=== PATIENT | female | born 1975 | race Two or more races ===

== ENCOUNTER 2020-08-28 02:00 | Emergency (ER) | payer SELFPAY ==
[~2020-08-28] VITALS: Ht 129.5 cm; Wt 66.0 kg
[2020-08-28 02:36] LABS: BILIRUBIN,URINE NEGATIVE (NEG); CLARITY,URINE CLEAR; COLOR,URINE YELLOW; NITRITE,URINE NEGATIVE (NEG); PH,URINE 5.5 (<5.0-8.0); PROTEIN,URINE NEGATIVE (NEG-TRACE); UROBILINOGEN,URINE 0.2 mg/dL (0.2 mg/dL)
--- NOTE | 2020-08-28 02:36 | PHYS DOC ---
General Adult EDM: Chief Complaint: ABDOMINAL PAIN HPI: HPI: Patient is a 45 year old female who presents with abdominal pain that began 2 days ago. Patient notes that her pain is intermittent and she has used ibuprofen without relief. Patient also notes that her pain radiates to her back. She also complains of nausea, diarrhea, but denies vomiting, hematochezia she is not take any medication does not have any significant medical problems. She does not use tobacco products, drink alcohol, or use any other illicit drugs. There are no further complaints this time. Review of Systems: Review of Systems: Constitutional: Denies fever or chills Eyes: Denies redness or eye pain HENT: Denies nasal congestion or sore throat Respiratory: Denies cough or shortness of breath Cardiovascular: Denies chest pain or palpitations GI: Denies vomiting : Denies dysuria or hematuria Musculoskeletal: Denies back pain or joint pain Integument: Denies rash or skin lesions Neurologic: Denies headache, focal weakness or sensory changes Complete systems were reviewed and found to be within normal limits, except as documented in this note. Current Medications: Current Medications Medications (Trade) Dose Ordered Sig/Tamica Start Time Stop Time Status Last Admin Dose Admin Famotidine (Pepcid Vial) 20 mg 1X ONCE 08/28/20 02:30 08/28/20 02:31 UNV Ondansetron HCl (Zofran) 4 mg 1X ONCE 08/28/20 02:30 08/28/20 02:31 UNV Sodium Chloride 1,000 ml @ 1,000 mls/hr 1X ONCE 08/28/20 02:30 08/28/20 03:29 UNV Physical Exam: PE: Constitutional: Well developed, well nourished, no acute distress, non-toxic appearance HENT: Normocephalic, atraumatic Eyes: PERRL, EOMI, conjunctiva normal, no discharge Neck: Normal range of motion, no tenderness, supple Lungs & Thorax: No respiratory distress, equal chest rise and fall Abdomen: Epigastric and suprapubic tenderness to palpation, mild diffuse abdominal tenderness, no rebound, no rigidity, no guarding, no mass, Xavier sign negative Skin: Warm, dry, no erythema, no rash Back: No tenderness, no CVA tenderness Extremities: No tenderness, ROM intact, no edema Neurologic: Alert and oriented X 3, normal motor function, normal sensory function, no focal deficits noted Psychologic: Affect normal, judgment normal EKG: EK. Normal sinus rhythm rate of 56 bpm. Normal axis. No ST segment elevations or depressions. QTQTc 404 ms - 392 ms. Radiology/Procedures: Radiology/Procedures: PROCEDURE: CT ABD PELV W/ IV CONTRST ONLY Study: CT abdomen/pelvis with intravenous contrast Indication: Upper abdominal pain. Nausea and vomiting. Comparison: None. Technique: Helical CT imaging performed of the abdomen and pelvis after the intravenous administration of 75 cc Omnipaque 300 contrast. Sagittal and coronal reformats were obtained. One or more of the following individualized dose reduction techniques were utilized for this examination: 1. Automated exposure control 2. Adjustment of the mA and/or kV according to patient size 3. Use of iterative reconstruction technique. Findings: Within normal limits visualized lungs and mediastinal contents. Minimal basilar volume loss. Unremarkable liver, gallbladder, pancreas, spleen and adrenal glands. Symmetric renal enhancement. No stone or collecting system dilatation. Mildly thickened urinary bladder wall measuring up to 5 mm. Punctate focus of gas at the anterior aspect of the urinary bladder, image 38 series 5. Within normal limits uterus and endometrium for patient age. Left ovarian cyst measuring up to 2.2 cm. Unremarkable right adnexa. Mild volume colonic stool burden. The appendix is not well delineated. Fecalization of enteric material suggesting slowed transit. Within normal limits stomach. Nonaneurysmal aorta. Patent central portal veins and superior mesenteric vein. No concerning lymph nodes by size criteria. Small volume free fluid within the deep pelvis. No pneumoperitoneum. No acute abnormality of the body wall soft tissues. No acute or aggressive osseous process. Chronic unilateral pars defect on the left at L5. Impression: 1. Upper limits of normal urinary bladder wall thickness. There is also a punctate focus of gas within the bladder lumen. Cystitis should be considered for which correlation with urinalysis is recommended. No findings to suggest an ascending urinary tract infection. 2. Mild degree of constipation. No bowel obstruction. 3. Within normal limits gallbladder. The appendix is not well visualized but there are no inflammatory changes at its expected location. 4. Small ovarian cyst on the left and trace free fluid within the pelvis not atypical for patient age. Electronically signed by: DENISE OVALLE MD (08/28/2020 5:35 AM) [facility] Course & Med Decision Making: Course & Med Decision Making Pertinent Labs and Imaging studies reviewed. (See chart for details) [] Shirley Disclaimer: Dragon Disclaimer: This electronic medical record was generated, in whole or in part, using a voice recognition dictation system. Departure Departure Impression: Primary Impression: Epigastric abdominal pain Additional Impression: Nausea & vomiting Qualified Codes: R11.2 - Nausea with vomiting, unspecified Disposition: 01 DC HOME SELF CARE/HOMELESS Condition: STABLE Referrals: CANDIS BOSTON MD Patient Instructions: Abdominal Pain, [id number], Nausea and Vomiting, [id number] Scripts Hyoscyamine Sulfate (LEVSIN-SL) 0.125 Mg Tab.subl 0.125 MG SL Q4-6HRS PRN for PAIN, #14 TAB Prov: VONNIE BENITEZ DO 08/28/20 Famotidine (PEPCID) 20 Mg Tablet 20 MG PO BID, #14 TAB Prov: VONNIE BENITEZ DO 08/28/20 Ondansetron (ONDANSETRON ODT) 4 Mg Tab.rapdis 1 TAB PO PRN Q6-8HRS PRN for NAUSEA, #16 TAB Prov: VONNIE BENITEZ DO 08/28/20 VONNIE BENITEZ DO Aug 28, 2020 02:36
[2020-08-28] MEDS ORDERED: IV NORMAL SALINE 1000ML BAG 1,000 ML IV ONE (02:45)
[2020-08-28] MEDS ORDERED: FAMOTIDINE 20 MG/2 ML VIAL IVP ONE (02:45)
[2020-08-28] MEDS ORDERED: ONDANSETRON PF 4 MG/2 ML VIAL. IVP ONE (02:45)
[2020-08-28 02:46] LABS: BACTERIA,URINE FEW /HPF (0-FEW); RBC,URINE OCC /HPF (0-2); WBC,URINE OCC /HPF (0-4)
--- NOTE | 2020-08-28 02:50 | EKG ---
[facility] [address] [place] [address] Test Date: 2020-08-28 Test Time: 02:41:25 Pat Name: GATO WASHINGTON Department: Room: Gender: F Staff Nurse: : 1975 Requested By: VONNIE BENITEZ Order Number: [id number] Reading MD: Measurements Intervals [place] Rate: 56 P: 38 HI: 188 QRS: 33 QRSD: 92 T: 47 QT: 404 QTc: 392 Interpretive Statements SINUS RHYTHM NORMAL ECG RI6.01 No previous ECG available for comparison
[2020-08-28 03:40] LABS: BASO % 1 % (0-3); EOS # 0.1 x10^3/uL (0.0-0.7); EOS % 1 % (0-3); HEMATOCRIT 36.9 % (36.0-47.0); HEMOGLOBIN 12.3 g/dL (12.0-15.5); LYMPH # 2.1 x10^3/uL (1.0-4.8); LYMPH % 39 % (24-48); MEAN CORPUSCULAR HEMOGLOBIN 28 pg (25-35); MEAN CORPUSCULAR HGB CONC 33 g/dL (31-37); MEAN CORPUSCULAR VOLUME 85 fL (79-100); MONO # 0.4 x10^3/uL (0.0-1.1); MONO % 8 % (0-9); NEUT # 2.8 x10^3/uL (1.8-7.7); NEUT % 52 % (31-73); PLATELET COUNT 205 x10^3/uL (140-400); RED BLOOD COUNT 4.32 x10^6/uL (3.50-5.40); RED CELL DISTRIBUTION WIDTH 14.7 % (11.5-14.5); WHITE BLOOD COUNT 5.5 x10^3/uL (4.0-11.0)
[2020-08-28 04:01] LABS: CALCIUM 8.6 mg/dL (8.5-10.1); CREATININE 0.7 mg/dL (0.6-1.0); GFR 91.3; POTASSIUM 4.7 mmol/L (3.5-5.1)
[2020-08-28 04:07] LABS: ALBUMIN 3.4 g/dL (3.4-5.0); ALBUMIN/GLOBULIN RATIO 0.9 (1.0-1.7); TOTAL BILIRUBIN 0.4 mg/dL (0.2-1.0); TOTAL PROTEIN 7.3 g/dL (6.4-8.2)
[2020-08-28] MEDS ORDERED: CONTRAST GIVEN. MC PRN (04:15)
[2020-08-28] MEDS ORDERED: IOHEXOL 300 MG/ML 100ML VIAL. IV ONE (04:15)
[2020-08-28 04:22] LABS: CREATINE KINASE 98 U/L (26-192)
[2020-08-28] MEDS ORDERED: diphenhydrAMINE 50 MG/ML VIAL IVP ONE (04:30)
[2020-08-28] MEDS ORDERED: METOCLOPRAMIDE HCL 10 MG/2 ML VIAL. IVP ONE (04:30)
[2020-08-28 05:01] LABS: U PREG PATIENT NEGATIVE (NEG)
--- NOTE | 2020-08-28 05:37 | RAD ---
Study: CT abdomen/pelvis with intravenous contrast Indication: Upper abdominal pain. Nausea and vomiting. Comparison: None. Technique: Helical CT imaging performed of the abdomen and pelvis after the intravenous administratio n of 75 cc Omnipaque 300 contrast. Sagittal and coronal reformats were obtained. One or more of the following individualized dose reduction techniques were utilized for this examinat ion: 1. Automated exposure control 2. Adjustment of the mA and/or kV according to patient size 3. Use of iterative reconstruction technique. Findings: Within normal limits visualized lungs and mediastinal contents. Minimal basilar volume loss. Unremarkable liver, gallbladder, pancreas, spleen and adrenal glands. Symmetric renal enhancement. No stone or collecting system dilatation. Mildly thickened urinary bladder wall measuring up to 5 mm. P unctate focus of gas at the anterior aspect of the urinary bladder, image 38 series 5. Within normal limits uterus and endometrium for patient age. Left ovarian cyst measuring up to 2.2 cm. Unremarkable right adnexa. Mild volume colonic stool burden. The appendix is not well delineated. Fecalization of enteric materi al suggesting slowed transit. Within normal limits stomach. Nonaneurysmal aorta. Patent central portal veins and superior mesenteric vein. No concerning lymph no genoveva by size criteria. Small volume free fluid within the deep pelvis. No pneumoperitoneum. No acute a bnormality of the body wall soft tissues. No acute or aggressive osseous process. Chronic unilateral pars defect on the left at L5. Impression: 1. Upper limits of normal urinary bladder wall thickness. There is also a punctate focus of gas with in the bladder lumen. Cystitis should be considered for which correlation with urinalysis is recommen ded. No findings to suggest an ascending urinary tract infection. 2. Mild degree of constipation. No bowel obstruction. 3. Within normal limits gallbladder. The appendix is not well visualized but there are no inflammato ry changes at its expected location. 4. Small ovarian cyst on the left and trace free fluid within the pelvis not atypical for patient ag e. Electronically signed by: DENISE OVALLE MD (08/28/2020 5:35 AM) [facility]
[2020-08-28] MEDS ORDERED: FAMO-63 PO (05:57)
[2020-08-28] MEDS ORDERED: ONDA4TAB12 PO (05:57)
[2020-08-28] MEDS ORDERED: HYOS0.1265 SL (05:57)
[2020-08-28 06:40] VITALS: BP 111/62
== END 2020-08-28 06:40 | disposition home or self-care (01) ==
LOC: ER 02:00
DX: R10.13 Epigastric pain (principal); R11.2 Nausea with vomiting, unspecified; R19.7 Diarrhea, unspecified
CPT/HCPCS: 36415; 74177; 80053; 81001; 81025; 82553; 83690; 84484; 85025; 93005; 96361; 96374; 96375; 99285; J1200; J2405; J2765; J3490; J7030; Q9967

== ENCOUNTER 2020-11-10 19:01 | Emergency (ER) | payer SELFPAY ==
[~2020-11-10] VITALS: Ht 160 cm; Wt 67.0 kg
[~2020-11-10 19:01] MED LIST: FAMO-63 PO; HYOS0.1265 SL; ONDA4TAB12 PO
[2020-11-10] MEDS ORDERED: ONDANSETRON PF 4 MG/2 ML VIAL. IVP ONE (19:30)
[2020-11-10] MEDS ORDERED: FAMOTIDINE 20 MG/2 ML VIAL IVP ONE (19:30)
[2020-11-10] MEDS ORDERED: MORPHINE SULFATE 10 MG/ML VIAL. IV ONE ×2 (19:30→20:30)
[2020-11-10] MEDS ORDERED: IV NORMAL SALINE 1000ML BAG 1,000 ML IV ONE (19:30)
[2020-11-10 19:40] LABS: BASO % 1 % (0-3); EOS # 0.1 x10^3/uL (0.0-0.7); EOS % 1 % (0-3); HEMATOCRIT 37.8 % (36.0-47.0); HEMOGLOBIN 12.9 g/dL (12.0-15.5); LYMPH # 1.5 x10^3/uL (1.0-4.8); LYMPH % 23 % (24-48); MEAN CORPUSCULAR HEMOGLOBIN 29 pg (25-35); MEAN CORPUSCULAR HGB CONC 34 g/dL (31-37); MEAN CORPUSCULAR VOLUME 83 fL (79-100); MONO # 0.5 x10^3/uL (0.0-1.1); MONO % 9 % (0-9); NEUT # 4.3 x10^3/uL (1.8-7.7); NEUT % 67 % (31-73); PLATELET COUNT 215 x10^3/uL (140-400); RED BLOOD COUNT 4.54 x10^6/uL (3.50-5.40); RED CELL DISTRIBUTION WIDTH 15.2 % (11.5-14.5); WHITE BLOOD COUNT 6.4 x10^3/uL (4.0-11.0)
--- NOTE | 2020-11-10 19:47 | PHYS DOC ---
Past Medical History Past Medical History: No Pertinent History Past Surgical History: Appendectomy, Smoking Status: Never Smoker Alcohol Use: None Drug Use: None General Adult EDM: Chief Complaint: ABDOMINAL PAIN HPI: HPI: Patient is a 45 year old female with history of appendectomy, who presents to the ED today complaining of generalized mid to lower abdominal pain, symptoms began today. Patient states symptoms radiate to the left flank region. Denies any nausea vomiting. Describes the pain as moderate. Constant worse this evening. Denies anything specifically relieving the pain or exacerbating the pain. Patient is [place]ian-speaking and interpretation was provided by the daughter Review of Systems: Review of Systems: Constitutional: Denies fever or chills. [] Eyes: Denies change in visual acuity. [] HENT: Denies nasal congestion or sore throat. [] Respiratory: Denies cough or shortness of breath. [] Cardiovascular: Denies chest pain or edema. [] GI: Reports mid to lower abdominal pain, denies nausea, vomiting, bloody stools or diarrhea. [] : Reports left flank pain. Denies dysuria. [] Musculoskeletal: Denies back pain or joint pain. [] Integument: Denies rash. [] Neurologic: Denies headache, focal weakness or sensory changes. [] Psychiatric: Denies depression or anxiety. [] Heart Score: C/O Chest Pain: N/A Risk Factors: Risk Factors: DM, Current or recent (<one month) smoker, HTN, HLP, family history of CAD, obesity. Risk Scores: Score 0 - 3: 2.5% MACE over next 6 weeks - Discharge Home Score 4 - 6: 20.3% MACE over next 6 weeks - Admit for Clinical Observation Score 7 - 10: 72.7% MACE over next 6 weeks - Early Invasive Strategies Current Medications: Current Medications Medications (Trade) Dose Ordered Sig/Tamica Start Time Stop Time Status Last Admin Dose Admin Famotidine (Pepcid Vial) 20 mg 1X ONCE 11/10/20 19:30 5 19:31 DC Morphine Sulfate (Morphine Sulfate) 5 mg 1X ONCE 11/10/20 19:30 5 19:31 DC Ondansetron HCl (Zofran) 4 mg 1X ONCE 11/10/20 19:30 5 19:31 DC Sodium Chloride 1,000 ml @ 1,000 mls/hr 1X ONCE 11/10/20 19:30 11/10/20 20:29 Allergies: Allergies: Allergies Coded Allergies Type Severity Reaction Last Updated Verified No Known Drug Allergies 11/10/20 No Physical Exam: PE: Constitutional: Well developed, well nourished, no acute distress, non-toxic appearance. [] HENT: Normocephalic, atraumatic, bilateral external ears normal, oropharynx moist, no oral exudates, nose normal. [] Eyes: PERRLA, EOMI, conjunctiva normal, no discharge. [] Neck: Normal range of motion, no tenderness, supple, no stridor. [] Cardiovascular:Heart rate regular rhythm, no murmur [] Lungs & Thorax: Bilateral breath sounds clear to auscultation [] Abdomen: Bowel sounds normal, soft, diffuse tenderness to the lower abdomen, no obvious point tenderness to the right lower left lower quadrant, no right upper quadrant tenderness, no left upper quadrant tenderness, negative psoas sign, negative Xavier sign, negative obturator sign, no masses, no pulsatile masses. [] Skin: Warm, dry, no erythema, no rash. [] Back: No tenderness, no CVA tenderness. [] Extremities: No tenderness, no cyanosis, no clubbing, ROM intact, no edema. [] Neurologic: Alert and oriented X 3, normal motor function, normal sensory function, no focal deficits noted. [] Psychologic: Affect normal, judgement normal, mood normal. [] Current Patient Data: Labs: Laboratory Tests Test 11/10/20 19:18 POC Urine HCG, Qualitative Hcg negative (Negative) Vital Signs: Vital Signs Date Time Temp Pulse Resp B/P (MAP) Pulse Ox O2 Delivery O2 Flow Rate FiO2 11/10/20 19:10 98.4 70 20 122/58 (79) 98 Room Air 98.4 EKG: EKG: [] Radiology/Procedures: Radiology/Procedures: []PROCEDURE: CT ABDOMEN PELVIS WO CONTRAST Exam: CT of abdomen and pelvis without contrast INDICATION: Abdominal pain TECHNIQUE: Sequential axial images through the abdomen and pelvis obtained without IV contrast. Sagittal and coronal reformatted images were reconstructed from the axial data and reviewed. Exposure: One or more of the following in the visualized dose reduction techniques were utilized for this examination: 1. Automated exposure control 2. Adjustment of the MA and/or KV according to patient size 3. Use of iterative of reconstructive technique Comparisons: 08/28/2020 FINDINGS: Heart size is normal. No pericardial effusion. Visualized lung bases are clear. No pleural effusion. Evaluation of solid organs is limited secondary to noncontrast technique. Liver, spleen, pancreas, gallbladder and adrenals are unremarkable. No perinephric inflammation or hydronephrosis. No renal or ureteral calculi are identified. Bladder is decompressed not well evaluated. Uterus is not enlarged. No abnormal adnexal. Large and small bowel are unremarkable. Appendix is nonidentified. No free intra-abdominal air or fluid. No obstruction. Abdominal aorta has a normal course caliber. No enlarged intra-abdominal lymph nodes are identified. No suspicious osseous lesions or acute fractures. IMPRESSION: No acute process identified within the abdomen or pelvis. Electronically signed by: Binta Watson MD (11/10/2020 7:52 PM) [facility]IN [facility] DICTATED and SIGNED BY: BINTA WATSON MD DATE: 11/10/20 [id number] Course & Med Decision Making: Course & Med Decision Making Pertinent Labs and Imaging studies reviewed. (See chart for details) This is a 45-year-old female patient presenting to the ED today complaining of generalized mid to lower abdominal pain that began today. CBC, CMP, lipase, no acute findings. CT of the abdomen and pelvic is negative, positive for UTI, given Rocephin IV in the ED, discharged on cephalexin. Pr ovided return precautions and discharged in stable condition. Dragon Disclaimer: Shirley Disclaimer: This electronic medical record was generated, in whole or in part, using a voice recognition dictation system. Departure Departure Impression: Primary Impression: Urinary tract infection Qualified Codes: N39.0 - Urinary tract infection, site not specified Disposition: HOME / SELF CARE / HOMELESS Condition: STABLE Referrals: NO PCP (PCP) follow up with your doctor in 1-2 weeks Patient Instructions: Urinary Tract Infection Additional Instructions: You have urinary tract infection. Take the prescribed antibiotics until completed. Take the pain medicine as needed. Push fluids. Follow-up with your doctor in 1 to 2 weeks Scripts Phenazopyridine Hcl (PYRIDIUM) 100 Mg Tablet 1 TAB PO TID for urinary discomfort for 2 Days, #6 TAB 0 Refills Prov: CHAPARRO SILVEIRA APRN 11/10/20 Naproxen (NAPROXEN) 500 Mg Tablet 1 TAB PO BID for pain, #20 TAB 0 Refills Prov: CHAPARRO SILVEIRA APRN 11/10/20 Hydrocodone Bit/Acetaminophen (HYDROCODONE-APAP 5-325 ) 1 Tab Tablet 1 TAB PO PRN Q6HRS PRN for PAIN, #10 TAB 0 Refills Prov: CHAPARRO SILVEIRA APRN 11/10/20 Cephalexin (CEPHALEXIN) 500 Mg Tablet 1 TAB PO BID, #14 TAB Prov: CHAPARRO SILVEIRA DENTAL BILLER 11/10/20 CHAPARRO SILVEIRA APRN November 10, 2020 19:47
--- NOTE | 2020-11-10 19:54 | RAD ---
Exam: CT of abdomen and pelvis without contrast INDICATION: Abdominal pain TECHNIQUE: Sequential axial images through the abdomen and pelvis obtained without IV contrast. Sagit brenda and coronal reformatted images were reconstructed from the axial data and reviewed. Exposure: One or more of the following in the visualized dose reduction techniques were utilized for this examination: 1. Automated exposure control 2. Adjustment of the MA and/or KV according to patient size 3. Use of iterative of reconstructive technique Comparisons: 08/28/2020 FINDINGS: Heart size is normal. No pericardial effusion. Visualized lung bases are clear. No pleural effusion. Evaluation of solid organs is limited secondary to noncontrast technique. Liver, spleen, pancreas, gallbladder and adrenals are unremarkable. No perinephric inflammation or hydronephrosis. No renal or ureteral calculi are identified. Bladder is decompressed not well evaluated. Uterus is not enlarged. No abnormal adnexal. Large and small bowel are unremarkable. Appendix is nonidentified. No free intra-abdominal air or flu id. No obstruction. Abdominal aorta has a normal course caliber. No enlarged intra-abdominal lymph nodes are identified. No suspicious osseous lesions or acute fractures. IMPRESSION: No acute process identified within the abdomen or pelvis. Electronically signed by: Binta Khan MD (11/10/2020 7:52 PM) [facility]
[2020-11-10 20:01] LABS: BILIRUBIN,URINE NEGATIVE (NEG); CLARITY,URINE CLEAR; COLOR,URINE YELLOW; NITRITE,URINE NEGATIVE (NEG); PROTEIN,URINE 30 mg/dL (NEG-TRACE); UROBILINOGEN,URINE 0.2 mg/dL (0.2 mg/dL)
[2020-11-10 20:08] LABS: CALCIUM 8.6 mg/dL (8.5-10.1); CREATININE 0.7 mg/dL (0.6-1.0); GFR 91.3; POTASSIUM 3.6 mmol/L (3.5-5.1)
[2020-11-10 20:12] LABS: BACTERIA,URINE MODERATE /HPF (0-FEW); RBC,URINE >40 /HPF (0-2); WBC,URINE >40 /HPF (0-4)
[2020-11-10 20:13] LABS: ALBUMIN 3.7 g/dL (3.4-5.0); TOTAL BILIRUBIN 0.4 mg/dL (0.2-1.0); TOTAL PROTEIN 7.5 g/dL (6.4-8.2)
[2020-11-10] MEDS ORDERED: cefTRIAXone IV Push 1 GM VIAL. IVP ONE (20:30)
[2020-11-10] MEDS ORDERED: KETOROLAC 30 MG/ML VIAL. IVP ONE (20:30)
[2020-11-10] MEDS ORDERED: CEPH500T PO (20:41)
[2020-11-10] MEDS ORDERED: NAPR-514 PO (20:41)
[2020-11-10] MEDS ORDERED: HYDR-2761 PO (20:41)
[2020-11-10] MEDS ORDERED: PHEN100T82 PO (20:41)
[2020-11-10 21:59] VITALS: BP 118/69
[2020-11-10] MEDS ORDERED: HYDROmorphone 2 MG/ML VIAL IVP ONE (22:00)
== END 2020-11-10 22:00 | disposition home or self-care (01) ==
LOC: ER 19:01
DX: N39.0 Urinary tract infection, site not specified (principal)
CPT/HCPCS: 36415; 74176; 80053; 81001; 81025; 83690; 85025; 87086; 96361; 96374; 96375; 96376; 99285; J0696; J1170; J1885; J2270; J2405; J3490; J7030; 87077; 87186